=== PATIENT | male | born 1935 | race Caucasian/White ===

== ENCOUNTER 2016-12-07 15:13 | Emergency (ER) | payer OTHER ==
[2016-12-07 15:19] VITALS: BP 129/68
[2016-12-07] MEDS ORDERED: Sodium Chloride 0.9% 10 ML Syringe FLUSH PRN (15:34)
[2016-12-07] MEDS ORDERED: Sodium Chloride 0.9% 1,000 ML IV SCH (15:45)
--- NOTE | 2016-12-07 16:06 | EDM.PDOC ---
ED HPI GENERAL MEDICAL PROBLEM - General Chief Complaint: Neuro Symptoms/Deficits Stated Complaint: MEDICAL Time Seen by Provider: 12/07/16 15:25 Source of Information: Reports: Patient, EMS, EMS Notes Reviewed, Family History Limitations: Reports: Other (Speech is slurred and acute CVA presentation) - History of Present Illness INITIAL COMMENTS - FREE TEXT/NARRATIVE: EMS was summoned to the house, the reported patient had facial drooping. On initial evaluation the patient appeared asymptomatic. He was transported to the emergency room. He was still normal on presentation and actions. of initial evaluation by the emergency room nursing staff the patient notes that the right-sided weakness and slurred speech. The patient stroke in evolution of sudden onset and visible to the staff and to this examiner. The patient never had a sinus symptoms of acute CVA with right-sided presentation. A CT scan of the head was ordered immediately. The patient's vision was discussed with Dr. Chang, stroke neurologist at the [facility]. The CT scan did not show any of his hemorrhaging. The patient will be receiving TPA and there transported to [place]. Who was cut that the patient needed 67 mg of TPA. The first 7 mg are given IV push. The remainder 60 mg was given IV infusion over one hour. The patient and his were both informed of the dangers of TPA, which most likely would cause intercranial hemorrhage and possible . The risks and benefits were discussed and accepted the risk try to get the benefits of breaking up a clot. Laboratory has been ordered and started. Onset: Today Onset Date: 12/07/16 Duration: Getting Worse Location: Reports: Generalized (Right-sided dysfunction) Severity: Moderate Improves with: Reports: None Worsens with: Reports: None Context: Denies: Activity, Exercise, Lifting, Sick Contact, Trauma - Related Data Allergies Allergy/AdvReac Type Severity Reaction Status Date / Time No Known Allergies Allergy Verified 12/07/16 15:36 Home Meds: Home Meds Aspirin [Halfprin] 81 mg PO DAILY 03/24/15 [History] Furosemide [Lasix] 40 mg PO DAILY 03/24/15 [History] Isosorbide Mononitrate [Imdur] 30 mg PO QAM 03/24/15 [History] Lisinopril 20 mg PO QAM 03/24/15 [History] Metoprolol Succinate 50 mg PO QAM 03/24/15 [History] Nitroglycerin [Nitrostat] 0.4 mg SL ASDIRECTED PRN 03/24/15 [History] PARoxetine HCl [Paroxetine HCl] 30 mg PO QPM 03/24/15 [History] Temazepam [Restoril] 15 mg PO QPM 03/24/15 [History] rOPINIRole HCl [Requip] 1 mg PO QAM 03/24/15 [History] Past Medical History HEENT History: Reports: Hard of Hearing, Impaired Vision, Macular Degeneration, Other (See Below) Other HEENT History: Blind in left eye Cardiovascular History: Reports: CAD, CT, Stents Gastrointestinal History: Reports: GERD Genitourinary History: Reports: Renal Calculus, Other (See Below) Other Genitourinary History: urinary frequency Musculoskeletal History: Reports: Arthritis Neurological History: Reports: Head Trauma Psychiatric History: Reports: Anxiety, Depression - Infectious Disease History Infectious Disease History: Reports: Chicken Pox, Measles, Mumps, Shingles - Past Surgical History Cardiovascular Surgical History: Reports: Coronary Artery Stent GI Surgical History: Reports: Small Bowel Social & Family History - Tobacco Use Smoking Status *Q: Never Smoker Years of Tobacco use: 30 Used Tobacco, but Quit: Yes Month Tobacco Last Used: 20 yrs Second Hand Smoke Exposure: No - Caffeine Use Caffeine Use: Reports: Coffee, Tea - Alcohol Use Days Per Week of Alcohol Use: 1 Number of Drinks Per Day: 1 Total Drinks Per Week: 1 - Recreational Drug Use Recreational Drug Use: No ED ROS GENERAL - Review of Systems Review Of Systems: Unable To Obtain HEENT: Reports: Vision Change (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), Other Respiratory: Reports: Shortness of Breath Cardiovascular: Reports: Dyspnea on Exertion, Lightheadedness Endocrine: Reports: Fatigue GI/Abdominal: Reports: No Symptoms : Reports: Frequency, Urgency Musculoskeletal: Reports: Back Pain, Joint Pain, Muscle Pain Skin: Reports: Dryness, Bruising, Erythema Neurological: Reports: Dizziness, Headache, Gait Disturbance Psychiatric: Reports: Confusion Hematologic/Lymphatic: Reports: Easy Bruising ED EXAM, NEURO - Physical Exam Exam: See Below Exam Limited By: Physical Impairment General Appearance: Alert, Anxious, Moderate Distress Eye Exam: Bilateral Eye: Normal Inspection (While central vision left eye) Ears: Normal External Exam, Hearing Grossly Normal Nose: Normal Inspection Throat/Mouth: Normal Inspection, Normal Lips Head Exam: Atraumatic, Normocephalic Neck: Normal Inspection, Limited Range of Motion Respiratory/Chest: No Respiratory Distress, Rales Cardiovascular: Bradycardia. No: Normal Peripheral Pulses (Decreased but equal bilaterally) GI/Abdominal: Soft, Non-Tender Neurological: Alert, Abnormal Motor. No: Normal Gait Back Exam: Decreased Range of Motion Extremities: Limited Range of Motion, Other (Weakness right-sided). No: Normal Inspection Psychiatric: Anxious, Flat Affect Skin Exam: Warm, Dry Course - Vital Signs Last Recorded V/S: Last Vital Signs Temp 97.0 F 12/07/16 15:50 Pulse 52 L 12/07/16 15:50 Resp 13 12/07/16 15:50 BP 129/68 12/07/16 15:50 Pulse Ox 96 12/07/16 15:50 - Orders/Labs/Meds Orders: Active Orders 24 hr Category Date Time Status EKG Documentation Completion [RC] ASDIRECTED Care 12/07/16 15:39 Ordered Peripheral IV Care [RC] . DIRECTED Care 12/07/16 15:35 Ordered Head wo Cont [CT] Stat Exams 12/07/16 15:23 Ordered Sodium Chloride 0.9% @ 125 MLS/HR (1000ml) Med 12/07/16 15:45 Ordered Sodium Chloride 0.9% [Normal Saline] 1,000 ml IV ASDIRECTED Sodium Chloride 0.9% [Saline Flush] Med 12/07/16 15:34 Ordered 10 ml FLUSH ASDIRECTED PRN Peripheral IV Insertion Adult [OM.PC] Stat Oth 12/07/16 15:34 Ordered EKG 12 Lead [EK] Routine Ther 12/07/16 15:39 Ordered Medication Orders Sodium Chloride (Normal Saline) 1,000 mls @ 125 mls/hr IV ASDIRECTED XIOMARA Sodium Chloride (Saline Flush) 10 ml FLUSH ASDIRECTED PRN PRN Reason: Keep Vein Open Labs: Laboratory Tests 12/07/16 12/07/16 12/07/16 Range/Units 15:45 15:45 15:45 WBC 10.1 (4.5-11.0) K/uL RBC 4.92 (4.30-5.90) M/uL Hgb 14.9 (12.0-15.0) g/dL Hct 43.8 (40.0-54.0) % MCV 89 (80-98) fL MCH 30 (27-31) pg MCHC 34 (32-36) % Plt Count 148 L (150-400) K/uL Neut % (Auto) 56 (36-66) % Lymph % (Auto) 32 (24-44) % Guthrie % (Auto) 9 H (2-6) % Eos % (Auto) 3 (2-4) % Baso % (Auto) 0 (0-1) % PT 11.2 (9.5-12.0) sec INR 1.05 (0.80-1.20) APTT 26.3 L (27.0-36.0) sec Sodium 143 (140-148) mmol/L Potassium 4.1 (3.6-5.2) mmol/L Chloride 107 (100-108) mmol/L Carbon Dioxide 28 (21-32) mmol/L Anion Gap 7.7 (5.0-14.0) mmol/L BUN 16 (7-18) mg/dL Creatinine 1.2 (0.8-1.3) mg/dL Est Cr Clr Drug Dosing 48.28 mL/min Estimated GFR (MDRD) 58 L (>60) Glucose 90 (74-106) mg/dL Calcium 8.5 (8.5-10.1) mg/dL Total Bilirubin 0.7 (0.2-1.0) mg/dL AST 26 (15-37) U/L ALT 24 (12-78) U/L Alkaline Phosphatase 122 H (46-116) U/L Total Protein 5.6 L (6.4-8.2) g/dL Albumin 3.5 (3.4-5.0) g/dL Globulin 2.1 L (2.3-3.5) g/dL Albumin/Globulin Ratio 1.7 (1.2-2.2) Meds: Medications Generic Name Dose Route Start Last Admin Trade Name Freq PRN Reason Stop Dose Admin Sodium Chloride 1,000 mls @ 125 mls/hr 12/07/16 15:45 Normal Saline IV ASDIRECTED XIOMARA Sodium Chloride 10 ml 12/07/16 15:34 Saline Flush FLUSH ASDIRECTED PRN Keep Vein Open Discontinued Medications Generic Name Dose Route Start Last Admin Trade Name Freq PRN Reason Stop Dose Admin Alteplase, Recombinant 60 mg 12/07/16 15:35 12/07/16 16:03 Activase IV 12/07/16 15:36 60 mg .INFUSION ONE Administration Alteplase, Recombinant 7 mg 12/07/16 15:38 12/07/16 16:01 Activase IVPUSH 12/07/16 15:39 7 mg .BOLUS ONE Administration - Radiology Interpretation Free Text/Narrative:: Final Report Patient: MITALI MCINTYRE Facility: [facility] Site . Site : 1935 Study: CT Head STROKE PROTOCOL-12/07/2016 3:34:23 PM Ordering Physician: KENYATTA [phone] Final Report: INDICATION: Right-sided weakness TECHNIQUE: Noncontrast axial CT of the head is submitted. Compared to prior CT of the head from May 30, 2015. FINDINGS: Mild cerebral and cerebellar atrophy. The ventricles, sulci and gyri are of normal size, shape and contour for age and degree of atrophy. Midline structures are centrally located. No convincing evidence of suspicious intra- or extra-axial fluid collections. Mild patchy regions of decreased attenuation within the periventricular and subcortical white matter of both cerebral hemispheres. 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 No radiographic evidence of acute intracranial abnormalities. 2. Mild cerebral and cerebellar atrophy. 3. Mild supratentorial white matter changes that are non-specific, but statistically most likely related to small vessel ischemic disease. 4. Interval development of chronic lacunar infarcts in the right basal ganglia. Dictated by Narayan Cheney MD @ 12/07/2016 3:45:35 PM Dictated by: Narayan Cheney MD @ 12/07/2016 15:45:47 (Electronic Signature) Departure - Departure Time of Disposition: 16:12 Disposition: DC/Tfer to Acute Hospital 02 Condition: fair Clinical Impression: Acute CVA (cerebrovascular accident) - Discharge Information Forms: ED Department Discharge Additional Instructions: Patient is treated in the emergency room for a stroke in evolution. The patient was given 67 mg TPA. The patient was airlifted to [facility] in [place]. Dr. Chang is the accepting neurologist. - My Orders Last 24 Hours: My Active Orders 12/07/16 15:34 Sodium Chloride 0.9% [Saline Flush] 10 ml FLUSH ASDIRECTED PRN Peripheral IV Insertion Adult [OM.PC] Stat 12/07/16 15:35 Peripheral IV Care [RC] . DIRECTED 12/07/16 15:39 EKG Documentation Completion [RC] ASDIRECTED EKG 12 Lead [EK] Routine 12/07/16 15:45 Sodium Chloride 0.9% @ 125 MLS/HR (1000ml) Sodium Chloride 0.9% [Normal Saline] 1,000 ml IV ASDIRECTED - Assessment/Plan Last 24 Hours: My Active Orders 12/07/16 15:34 Sodium Chloride 0.9% [Saline Flush] 10 ml FLUSH ASDIRECTED PRN Peripheral IV Insertion Adult [OM.PC] Stat 12/07/16 15:35 Peripheral IV Care [RC] . DIRECTED 12/07/16 15:39 EKG Documentation Completion [RC] ASDIRECTED EKG 12 Lead [EK] Routine 12/07/16 15:45 Sodium Chloride 0.9% @ 125 MLS/HR (1000ml) Sodium Chloride 0.9% [Normal Saline] 1,000 ml IV ASDIRECTED
== END 2016-12-07 16:17 ==
LOC: JP.ED 15:13
DX: I63.9 Cerebral infarction, unspecified (principal); I25.2 Old myocardial infarction; I25.10 Atherosclerotic heart disease of native coronary artery without angina pectoris; F41.9 Anxiety disorder, unspecified; F32.9 Major depressive disorder, single episode, unspecified; Z79.82 Long term (current) use of aspirin; Z79.899 Other long term (current) drug therapy; Z95.5 Presence of coronary angioplasty implant and graft
CPT/HCPCS: 36415; 70450; 80053; 85025; 85610; 85730; 93005; 96361; 96374; 99285; J2997; 93010